=== PATIENT | female | born 1960 | race Caucasian/White ===

== ENCOUNTER 2024-04-04 10:57 | Outpatient (CLI) | payer OTHER, SELFPAY ==
--- NOTE | 2024-04-04 10:45 | DI.RAD_ITS ---
Exam(s) XR KNEE LT 4V AP,LAT,PARVIN,PAT EXAM: XR KNEE LT 4V AP,LAT,PARVIN,PAT CLINICAL HISTORY: L knee pain. TECHNIQUE: 2D digital imaging was performed. COMPARISON: No exams were available for comparison FINDINGS: Four views. No evidence of acute fracture. Joint effusion is noted. There are advanced degenerative changes in the medial compartment with advanced joint space narrowing and what appears to be a possible osteocho ndral defect at the articular surface of the medial femoral condyle. There is no joint space narrowi ng in the lateral compartment of the knee. Minimal degenerative changes in the patellofemoral compar tment. IMPRESSION: Significant degenerative narrowing of the medial compartment. Suspicion for osteochondral defect at the articular surface of the medial femoral condyle. DATA REPOSITORY: RADIATION DOSE DELIVERED:
== END 2024-04-04 10:58 | disposition home or self-care (01) ==
LOC: DIORS 10:58
PROVIDERS: PCP Internal Medicine; Referring Provider Internal Medicine; Visit Provider Physician Assistant
DX: M25.569 Pain in unspecified knee (principal)
CPT/HCPCS: 73564

== ENCOUNTER 2024-04-29 01:25 | Outpatient (CLI) | payer OTHER, SELFPAY ==
[2024-04-29 10:30] LABS: HCT 38.7 % (36.0-46.0); MCH 34.2 pg (27.0-33.0); MCHC 33.6 % (32.0-36.0); MCV 102 fL (80-95); MPV 9.6 fL (8.0-11.0); Platelet Count 222 10^3/uL (130-400); RDW-SD 48.8 fL; WBC 6.43 10^3/uL (4.4-10.8)
[2024-04-29 12:54] LABS: Anion Gap 9.1 mmol/L (3-11); BUN 12 mg/dL (7-18); CO2 27.9 mmol/L (21.0-32.0); CREATININE 0.7 mg/dL (0.55-1.02); Calcium 9.2 mg/dL (8.5-10.1); Chloride 105 mmol/L (98-107); Estimated GFR 97.72 (mL/min/1.73m2); Glucose 111 mg/dL (74-106); Potassium 4.5 mmol/L (3.5-5.1); Sodium 142 mmol/L (136-145)
== END 2024-04-29 01:26 | disposition home or self-care (01) ==
LOC: LBO 01:26
PROVIDERS: PCP Internal Medicine; Visit Provider Student in an Organized Health Care Education/Training Program
DX: M17.12 Unilateral primary osteoarthritis, left knee (principal); Z01.818 Encounter for other preprocedural examination
CPT/HCPCS: 36415; 80048; 85027

== ENCOUNTER 2024-04-29 09:30 | Outpatient (CLI) | payer OTHER, SELFPAY ==
--- NOTE | 2024-04-29 08:45 | DI.RAD_ITS ---
Exam(s) XR STANDING ALIGNMENT EXAM: XR STANDING ALIGNMENT CLINICAL HISTORY: TKR Planning. TECHNIQUE: 2D digital imaging was performed. Four images were obtained. COMPARISON: CR XR KNEE LT 4V AP,LAT,PARVIN,PAT from 04/04/2024 FINDINGS: BONES: The hips are well maintained. The right hip is well maintained with minimal spurring seen lat erally. There is again seen marked narrowing in the medial left femoral tibial joint with bone on jeffrey ne. There is also flattening of the articular surface of the femoral condyle. The ankles are well m aintained.There is no significant leg length discrepancy. SOFT TISSUE: Normal. IMPRESSION: State degenerative changes and possible post traumatic changes involving the left knee as described a juan diego. DATA REPOSITORY: RADIATION DOSE DELIVERED:
== END 2024-04-29 09:31 | disposition home or self-care (01) ==
LOC: DIORS 09:30
PROVIDERS: PCP Internal Medicine; Referring Provider Internal Medicine; Visit Provider Physician Assistant
DX: M17.12 Unilateral primary osteoarthritis, left knee (principal)
CPT/HCPCS: 77073

== ENCOUNTER 2024-05-11 06:56 | Day surgery (SDC) | payer OTHER, SELFPAY ==
[2024-05-11] VITALS (22 sets, daily range): BP systolic 101–146; BP diastolic 65–96; PULSE 75–93; RESP 13–23; TEMP 36.5–37; O2SAT 93–99; BMI 44.4
--- NOTE | 2024-05-11 06:15 | W.ANESPRE ---
General Info Date of Service Date Performed: 05/11/24 Height: 5 ft 1 in Weight: 106.594 kg Body Mass Index (BMI): 44.4 Surgical Procedure: Operation Date: 05/11/24 09:25 Proposed Procedure Side Surgeon p Knee Total Arthroplasty w/OrthAlign, Cementless CR Left Jose Alfredo Barajas MD Meds Allergies and Home Medications Allergies Allergy/AdvReac Type Severity Reaction Status Date / Time pollen extracts Allergy Unknown Other (See Verified 05/11/24 07:08 Comment) celecoxib (From Celebrex) AdvReac dizziness, Verified 05/11/24 07:15 light-headed meloxicam AdvReac GI upset Verified 05/11/24 07:15 omeprazole AdvReac Headache Verified 05/11/24 07:15 Home Medication ?Medication ?Instructions ?Recorded bupropion HCl 300 mg 24 hr tablet, 300 mg PO QAM 03/15/24 extended release duloxetine 30 mg capsule,delayed 30 mg PO DAILY 03/15/24 release levothyroxine 75 mcg capsule 75 mcg PO DAILY 03/15/24 lorazepam 0.5 mg tablet 0.5 mg PO BID PRN 03/15/24 multivitamin 1 tab PO DAILY 03/15/24 calcium carbonate (Calcium 600) 600 mg PO DAILY 04/04/24 milk thistle 150 mg capsule 150 mg PO BID 04/04/24 omega-3 fatty acids-fish oil 300 1 cap PO DAILY 04/04/24 mg-500 mg capsule (Fish Oil) psyllium husk 0.4 gram capsule 0.4 g PO DAILY 04/04/24 (Daily Fiber) acetaminophen 500 mg tablet 1,000 mg (2 x 500 mg) PO TID #90 05/11/24 tabs aspirin 81 mg tablet,delayed 81 mg PO BID #60 tabs 05/11/24 release dexamethasone 4 mg tablet 4 mg PO DAILY #2 tabs 05/11/24 gabapentin 300 mg capsule 300 mg PO QHS #14 caps 05/11/24 naproxen 500 mg tablet,delayed 500 mg PO BID #60 tabs 05/11/24 release oxycodone 5 mg tablet 5 mg PO Q4H PRN pain #20 tabs 05/11/24 Current Visit Medications: Current Medications Generic Name Dose Route Start Last Admin Trade Name Freq PRN Reason Stop Dose Admin Acetaminophen 1,000 mg 05/11/24 06:00 Acetaminophen 500 Mg Tab PO 05/11/24 23:59 PREOP TERRI Celecoxib 400 mg 05/11/24 06:00 Celecoxib 200 Mg Cap PO 05/11/24 23:59 PREOP TERRI Gabapentin 300 mg 05/11/24 06:00 Gabapentin 300 Mg Cap PO 05/11/24 23:59 PREOP TERRI Ringer's Solution 1,000 mls @ 80 mls/hr 05/11/24 06:00 IV 05/11/24 23:59 INFUSION TERRI Cefazolin Sodium/Dextrose 2 gm in 50 mls @ 100 mls/hr 05/11/24 06:00 Ancef Duplex IVPB 05/11/24 23:59 PREOP TERRI Tranexamic Acid/Sodium Chloride 1,000 mg in 100 mls @ 600 mls/hr 05/11/24 06:00 IVPB 05/11/24 23:59 PREOP TERRI IV Miscellaneous Supplies 1 each 05/11/24 06:00 Iv Access IV 05/11/24 23:59 DIRECTED TERRI Sodium Chloride 0 ml 05/11/24 06:00 Normal Saline Flush 10 Ml Syr IV 05/11/24 23:59 PRN PRN Sodium Chloride 0 ml 05/11/24 06:00 Normal Saline 10 Ml Vial IJ 05/11/24 23:59 DIRECTED PRN Sterile Water 0 ml 05/11/24 06:00 Water,Injection,Sterile 10 Ml Vial IJ 05/11/24 23:59 DIRECTED PRN PFSH Active Problems Active Problems: Problem Status Onset Code Osteoarthritis of left knee Acute M17.12 Neoplasm of skin of face Acute D49.2 Nicotine dependence Acute F17.200 Medical History Medical History Morbid obesity Meralgia paresthetica Hypothyroidism Per pt. states it has been a few months since it was drawn at @ [facility] Hyperlipidemia Hemorrhoids GERD (gastroesophageal reflux disease) Fatty liver Depressive disorder Chronic pain of left knee Anxiety Allergic rhinitis Surgical History Surgical History History of orthopedic surgery reconstruction of radial head (DOS 03/11/19) History of partial hysterectomy History of cholecystectomy Tobacco Smoking/Tobacco Use Status: Former Tobacco Use Alcohol Alcohol Intake: current Alcohol intake frequency: a few times a week Substance Use Substance use: Never Substance use type: does not use Vital Signs and Lab Results Lab Results Blood Type / Crossmatch: No Data to Display Complete Blood Count: White Blood Count 6.43 10^3/uL (4.4-10.8) 04/29/24 10:05 Red Blood Count 3.80 10^6/uL (3.93-5.22) L 04/29/24 10:05 Hemoglobin 13.0 g/dL (11.2-15.7) 04/29/24 10:05 Hematocrit 38.7 % (36.0-46.0) 04/29/24 10:05 Platelet Count 222 10^3/uL (130-400) 04/29/24 10:05 Complete Metabolic Panel: Sodium 142 mmol/L (136-145) 04/29/24 10:05 Potassium 4.5 mmol/L (3.5-5.1) 04/29/24 10:05 Chloride 105 mmol/L (98-107) 04/29/24 10:05 Carbon Dioxide 27.9 mmol/L (21.0-32.0) 04/29/24 10:05 BUN 12 mg/dL (7-18) 04/29/24 10:05 Creatinine 0.7 mg/dL (0.55-1.02) 04/29/24 10:05 Est GFR (CKD-EPI 2020) 97.72 (mL/min/1.73m2) 04/29/24 10:05 Calcium 9.2 mg/dL (8.5-10.1) 04/29/24 10:05 Glucose 111 mg/dL (74-106) H 04/29/24 10:05 Liver Function Panel: No Data to Display Coagulation Panel: No Data to Display Cardiac Panel: No Data to Display Arterial Blood Gas: No Data to Display Venous Blood Gas: No Data to Display Pancreas Panel: No Data to Display Thyroid Panel: No Data to Display Infectious Disease: No Data to Display Blood Cultures: No Data to Display Toxicology Panel: No Data to Display Anesthesia Assessment and Plan Anesthesia History Personal History: No History of Anesthesia Complications Family History: No Family History of Anesthesia Complications Exercise Tolerance Exercise Tolerance: Metabolic Equivalents>4 Cardiac & Pulmonary Exam Cardiac Exam: Normal S1/S2 Heart Sounds Pulmonary Exam: Clear Bilateral Breath Sounds Implantable Cardiac Device Does patient have a Pacemaker or an ICD?: No Airway Exam Known Difficult Airway: No Mallampati Class: 3 Mouth Opening: Normal (> 3cm) Thyromental Distance: Greater than 3 cm Neck Range of Motion: Full ROM Neck Circumference: Normal Teeth Condition: Normal Dentition ASA Classification ASA Score: ASA 3 Emergency Case?: No NPO Status NPO Status: NPO Clears >2 hours, Solids >8 hours Anesthesia Plan Resuscitation Status: Full Code Anesthesia Technique: Spinal Anesthesia Airway Planned: Natural Airway Pain Management: Surgeon and patient request nerve block Monitors Used: Standard Monitors Preoperative Comments:: 64 yo female for TKA. Sig PMHx: GERD (denies issues), fatty liver, hypothyroid (levothyroxine), anxiety/depression (bupropion/duloxetine, lorazepam). former smoker, occ EtOH, BMI >40. Echo: LVEF 65%, no WMA. normal RvFxn. no sig valve dz. PAS 24 mmhg.
--- NOTE | 2024-05-11 07:25 | W.PM.DSUDISC ---
Date of service: 05/11/24 Time of Service: 07:25 Discharge Plan Disposition Patient Disposition: Home Condition: Good Discharge Details Reason For Visit: L TKR Attending Provider: Jose Alfredo Barajas Primary Care Provider: Valorie Carson Home Meds and New Rx's Prescriptions: New aspirin 81 mg tablet,delayed release (DR/EC) 81 mg PO BID Qty: 60 0RF acetaminophen 500 mg tablet 1,000 mg PO TID Qty: 90 3RF dexamethasone 4 mg tablet 4 mg PO DAILY Qty: 2 0RF gabapentin 300 mg capsule 300 mg PO QHS Qty: 14 0RF oxycodone 5 mg tablet 5 mg PO Q4H MDD 6 tabs PRN (Reason: pain) Qty: 20 0RF naproxen 500 mg tablet,delayed release (DR/EC) 500 mg PO BID Qty: 60 3RF Continued Fish Oil 300-500 mg capsule 1 cap PO DAILY calcium carbonate [Calcium 600] 600 mg calcium (1,500 mg) tablet 600 mg PO DAILY psyllium husk [Daily Fiber] 0.4 gram capsule 0.4 g PO DAILY milk thistle 150 mg capsule 150 mg PO BID Rx Instructions: give with meal/snack bupropion HCl 300 mg tablet extended release 24 hr 300 mg PO QAM duloxetine 30 mg capsule,delayed release(DR/EC) 30 mg PO DAILY levothyroxine 75 mcg capsule 75 mcg PO DAILY lorazepam 0.5 mg tablet 0.5 mg PO BID PRN multivitamin Tablet 1 tab PO DAILY Discharge Instructions Additional Instructions: Total Knee Discharge Instructions Activity: The most important activity is to walk and to work on gentle motion (both flexion and extension). You should try to take short walks a few times a day. It is important that when resting you work on keeping the knee straight. Avoid putting a pillow behind the knee as this will encourage flexion. Work on range of motion exercises as provided by Physical Therapy. - Start outpatient physical therapy within 2 weeks. - You should wear the SAM hose on both legs for 2 weeks. You may remove these at night. You may also use any compression sock in place of the SAM hose. - Utilize [employer] to review exercises, see videos on exercises and obtain basic information pertaining to your surgery and your recovery. Dressing: Remove the Rafael wrap by 2 days after your surgery and put on the SAM stocking given to you from the hospital. Keep the surgical dressing (underneath the RAFAEL wrap) in place for at least one week. After the first week it may be removed and replaced with light gauze and tape or nothing. The wound and dressing may get wet after 3 days but avoid soaking the dressing or otherwise it will need to be changed. Many people prefer covering the dressing with cling wrap (saran wrap) to minimize it from getting soaked. If it gets wet, just pat dry. If it starts to peel off then it will need to be changed. Medications: - You should take Tylenol and anti-inflammatory napoxen as your primary pain control medications. If the Celebrex is too expensive or not covered, please call the office for another alternative (Advil/Ibuprofen or Naproxen/Aleve) - You have been prescribed a stronger pain medication Oxycodone for breakthrough pain, take as needed as prescribed. - You have been prescribed Gabapentin to take at night for restlessness and nerve pain. - You will be taking Aspirin 81mg twice a day for DVT prevention unless instructed otherwise. - You have also been prescribed Decadron to take to control post-operative nausea and pain. You will start this tomorrow. - If you have constipation you should take Colace or Miralax (both [id number]). It takes most people 3-4 days to have a bowel movement. Follow-up: 2 weeks If you have any acute concerns or questions, please do not hesitate to contact the office at [phone]. You may contact Dr. Barajas with any questions after hours through the hospital at [phone] or on his cell phone at [phone]. Referrals: Jose Alfredo Barajas MD [ [facility] STAFF PHYSICIAN] - Equipment/Supplies: Walker Activity:: Activity as Tolerated Shower/Bathe:: 72 hours Diet:: As Tolerated Discharge Orders Discharge Orders: Discharge Order (Routine); Ordered 05/11/24 Ordered By: Daniel Cid DS: Diagnosis Discharge Diagnosis (1) Osteoarthritis of left knee: Status: Acute
[2024-05-11] MEDS: Acetaminophen 500 MG TAB 1000 MG PO (07:56)
[2024-05-11] MEDS: Celecoxib 200 MG CAP 400 MG PO (07:56)
[2024-05-11] MEDS: Gabapentin 300 MG CAP PO (07:56)
[2024-05-11] MEDS: Lactated Ringers 1,000 ML 80 ML IV (08:00)
--- NOTE | 2024-05-11 08:11 | W.ANESNERVE ---
Nerve Block Single Injection Procedure Date and Time Date Performed: 05/11/24 Procedure Start: 08:08 Location Where Procedure Performed Procedure Location: Day Surgery Unit Reason Performed: Postoperative Analgesia Requesting Provider: Jose Alfredo Barajas Timeout Performed Timeout Performed: Yes Monitoring Used ECG, Blood Pressure and SpO2 Sterility Sterility: Hand Hygiene, Surgical Cap, Surgical Mask, Sterile Gloves and Chlorhexidine Sedation Given During Procedure Sedation Given (Indicate Dose Given): Versed IV Dose:: 2 mg Patient Mental Status Patient Mental Status: Sedate with meaningful communication Nerve Block 1st Nerve Block: Laterality: Left Block Type: Adductor Canal Ultrasound Image Saved?: Yes Needle / Catheter Used: 100mm SonoPlex II Local Anesthetic Bolus (Indicate Dose Given): Lidocaine used for local infiltration of skin, Injected in 3-5ml increments after negative blood aspiration and Bupivacaine 0.375% Dose:: 10 mL Additives (Indicate Dose Given): Normal Saline Ultrasound: Sterile probe cover and gel used Nerve Stimulator: Supplement to Ultrasound use and No twitch or parasthesia noted < 0.5 mA Paresthesia: None Procedure Tolerated: No Complications Procedure Outcome: Successful Performed By: Jeanmarie Diaz
[2024-05-11] MEDS: ceFAZolin 2 GM/50 ML BAG IVPB (09:09)
[2024-05-11] MEDS: TRANEXAMIC ACID/SOD. CHL. 1,000 MG/100 ML BAG 600 MG IVPB (09:14)
--- NOTE | 2024-05-11 11:40 | W.ANESPOSTOP ---
Postoperative Evaluation Date, Time and Location Date Performed: 05/11/24 Time Performed: 11:40 Patient Location: PACU Vital Signs Most Recent Imported Vital Signs: Most Recent Vital Signs Temp Pulse Resp BP Pulse Ox 36.6 C 78 18 101/81 96 05/11/24 11:25 05/11/24 08:03 05/11/24 08:03 05/11/24 08:03 05/11/24 08:03 Pain Score Most Recent Pain Score: Most Recent Pain Score Pain Level 0 05/11/24 11:25 Assessment Mental Status: Awake (Alert & Oriented to Patient Baseline) Airway and Respiratory Function: Patent airway with normal (patient baseline) respiratory exam Cardiovascular Function: Hemodynamically Stable Hydration Status: Adequately Hydrated Nausea & Vomiting: No Nausea or Vomiting Pain: Pt. Denies Any Pain (spinal still waning. ) Peripheral Nerve Block: Regional nerve block not resolved at time of post operative discharge
[2024-05-11] MEDS: fentaNYL 100 MCG/2 ML VIAL IVP ×2 (11:53→11:59)
[2024-05-11] MEDS: oxyCODONE 5 MG TAB PO (12:42)
--- NOTE | 2024-05-11 12:47 | W.PM.OP ---
Date of service: 05/11/24 Time of Service: 09:20 Operative Note Operative Note DATE OF PROCEDURE: 05/11/24 PRE-OP DIAGNOSIS: Left Knee Osteoarthritis POST-OP DIAGNOSIS: same Left Knee Osteonecrosis PROCEDURE: Left Total Knee Replacement with Intraoperative Navigation; Increased Difficulty Due to Habitus and Morbid Obesity SURGEON: Jose Alfredo Barajas MATERIALS SCHEDULER: Cherrie Cid ANESTHESIA TYPE: Spinal Refer to Anesthesia Record ESTIMATED BLOOD LOSS: 400 PATHOLOGY: none sent TOURNIQUET TIME: 0 COMPLICATIONS: None Patient was transported to: PACU Patient's condition: stable Implants: 1. Depuy Attune Cementless Cruciate Retaining Femoral Component, Size 5 2. Depuy Attune Cementless Fixed Bearing Tibial Component, Size 4 3. Depuy Attune 5x8 CR/FB Poly 4. Depuy Attune Patellar Component, Size 35 Indications: I have seen Tri in clinic for symptoms of LEFT knee arthritis, confirmed with radiographic findings. She had a knee arthroscopy preceding this visit for arthritis which only made her symptoms worse. She was relegated to using crutches due to significant pain. Tri has exhausted nonoperative methods and was having significant limitations in daily function and desired better function and less pain. I discussed the technical details of a knee replacement. I explained the risks of the procedure to include, but not limited to, bleeding, infection, pain, stiffness, fracture, damage to nerves and vessels, damage to muscles and tendons, loosening, need for repeat procedure, blood clot and cardiopulmonary demise. Despite these risks, Tri elected to proceed. Findings: There was significant signs of arthritis throughout the knee. Procedure Description: Tri was greeted in the preoperative holding area where the correct side was identified and marked. The consent was reviewed with the patient and signed. The history and physical was updated. All questions were answered. Preoperative mediacations were administered: Acetaminophen 1000mg, Celebrex 400mg, and Gabapentin 300mg. An adductor canal block was then administered by the anesthesia team in the PACU. Tri was taken back to the operating room. A spinal anesthestic was then administered. The patient was placed into the supine position on the operating room table. A nonsterile tourniquet was placed high onto the leg. Posts were placed for positioning during the procedure. All bony prominences were well padded. Prophylactic antibiotics in the form of Cefazolin were administered. 1g of Tranxemic Acid was given intravenously within 30 minutes of incision. The left leg was then prepped with Chloraprep and draped in a standard fashion with impervious stockinette. A second prep with Chloraprep was performed prior to application of Iodine impregnated skin protection. A timeout to confirm correct identity, side and site, procedure, allergies, anesthesia, and medical concerns was performed. With the knee in some flexion, a midline incision was made overlying the knee. Initial approach was challenging given her habitus and morbid obesity. There is significant adiposity overlying the anterior and anteromedial aspect of the knee which made it necessary to extend the incision for visualization of the deeper structures. Full thickness skin flaps were raised once the extensor mechanism was encountered. These were raised medially and laterally. Any bleeding was controlled with electrocautery. Once the extensor mechanism was fully exposed, a medial parapatellar arthrotomy was performed in a flexed position. All bleeding from the arthrotomy and the geniculate arteries was coagulated. A medial subperiosteal peel was performed with electrocautery to the midcoronal plane. Due to the significant varus deformity the entire medial tibial plateau was exposed. The fat pad was removed while keeping the patellar tendon protected. The anterior distal femur synovium was removed for later visualization. The ACL and PCL were resected and the anterior horn of the lateral meniscus was transected. The knee was then flexed with the patella everted. Large osteophytes from the tibia were removed. Large osteophytes from the femur were removed. There was notable erosion of cartilage from the trochlea. Additionally the entire medial femoral cartilage peeled off with underlying areas of bone necrosis about the medial femur, involving about 4 to 6 mm depth of bone over the weightbearing portion of the medial femur. A single starting pin was then placed 1cm anterior to the PCL insertion and the notch in the direction of the femoral head. The OrthoAlign device was applied over the pin. It was oriented to be in line with the epicondylar axis and the trochlear groove. It was then pinned into place. The navigation computer was then turned on and calibrated. The distal femur cut was set at 0.5 degrees varus and 3.5 degrees flexion. The distal femur cutting guide then was positioned for a 9mm cut. The distal femur was cut with an oscillating saw while protecting the soft tissues. The tibia was then addressed. The OrthoAlign device was placed over the tibial tubercle and medial tibia and secured into position. Unfortunately, the habitus of the anterior knee prevented the navigation device from being utilized as well as unable to mobilize the targeting arm into position due to the habitus of the leg and the anterior knee. Attempts were made to manipulate this in the position but it was not able to be placed appropriately and therefore did not have valid accuracy. Thus, I moved to a conventional device for the tibia. This was placed into position and alignment was assumed by the position of the foot, tibial crest by palpation and the tibial tubercle. This was placed into some slight varus matching her preoperative x-rays. A stylus was placed over the medial side for a 4 mm cut which corresponded to about 9 mm laterally. This was pinned into position. The soft tissue were protected and the proximal tibia was cut. The cut was inspected for any ridges or bony prominences which were removed. The knee was then brought into extension where a spacer block was utilized to confirm appropriate balance in an extension gap of about 8 mm. The Orthoalign gap balancing device was then placed in extension. Unfortunately, this also was unable to be utilized due to her habitus. I was unable to insert the paddles deep enough into the knee without impingement on the handle of the device. Therefore, attention was then turned to the femur. The femur was then sized as a size 5. The 4-in-1 cutting guide was the placed, posterior sized 1 notch, approximately 1.5 mm. An ayaan wing was used to confirm appropriate position of the anterior cut to avoid notching. This cutting guide was ensured to be flush on the cut surface and then pinned into place with headed pins. While protecting the soft tissues, quad tendon, and collateral ligaments, the anterior and posterior cuts were performed with a saw. The central two pins were removed and the posterior and anterior chamfers were cut next. The notch-cutting guide was placed. This was pinned to lateralize the femoral component as much as possible while keeping it flush on the cut surface. This was then pinned into position. A saw was used to make the notch cut. A rasp smoothed the cut surfaces. The medial and lateral menisci were removed. A trial femoral component was then inserted, impacted down to the cut surfaces, and the lug holes were drilled. A provisional trial tibial component was placed and the knee was brought through range of motion. There was noted to be excellent extension and flexion. There was no significant instability. The patella was tracking without thumbs. A size 8mm polyethylene component provided the best range of motion and stability with less than 2mm gapping with medial and lateral stress and full extension without significant hyperextension. The tibial cut surface was fully exposed. The tibia was then sized as a 4. The tibia had been previously marked during trialing to correspond to the center of the tibial component to help with rotation. The trial was aligned to this cherrie, approximately rotated to the medial 1/3rd of the tibial tubercle. The trial was pinned into place. The tibia was prepared with a reamer and a keel punch and lug holes. The knee was then brought into extension and the patella was measured as 25mm. Using the patellar clamp and cut guide, this was resected to a flat surface with at least 13mm of thickness remaining. The size 35 patella fit the best. This was oriented and then clamped into position. The lugs were drilled. The trial components were removed. The final components were opened on the back table. The periosteal and capsular tissues, especially posteriorly, around the knee were then systematically injected with a periarticular cocktail consisting of 246mg of Ropivacaine, 0.5mg of Epinephrine, 0.08mg of Clonidine, and 30mg of Ketorolac, diluted to 100cc. On the back table, with the implants opened, the cement was mixed. One batch of high viscosity cement was prepared with vacuum assistance. After the cement was ready a small amount was placed on the cut surface of the patella and the patellar button was clamped into position and held. While the cement was hardening, the cementless knee components were placed. Starting with the tibial component, the tibia was subluxed anteriorly and the lug holes of the component were lined up. The tibia was then impacted with an impactor and mallet until the tibial component was in contact with the tibia. Then, the femoral component was inserted. The lug holes were aligned and the component was impacted into position. The final polyethylene component was inserted. The knee was irrigated with Surgiphor Betadine solution. This was allowed to sit in the knee for 3 minutes and then it was thoroughly irrigated out with saline. After the cement had finally cured, approximately 15min, the clamp was removed from the patella and the knee was taken through range of motion. The patella was tracking with a no-thumbs technique. The capsule was then reapproximated with a No. 1 Vicryl at multiple locations. The capsule was finally closed with a No. 2 Stratafix, barbed suture. Deep tissues were then reapproximated with 0 Vicryl and 2-0 Vicryl. The skin was closed with a running 3-0 Monocryl in a subcuticular fashion. This was reinforced with skin glue. A Mepilex silver dressing was applied along with a [id number] LINDA wrap. A CryoCuff was applied. Tri was transferred to the hospital bed without difficulty an suffering no apparent complication. Tri has a good prognosis. Physical therapy will start today and without restrictions, weight-bearing as tolerated. Aspirin 81mg BID will be used for DVT prophylaxis.
--- NOTE | 2024-05-11 14:44 | IN_ITS ---
PT Notes Visit Reasons: L TKR Physical Therapy Day Surgery Initial Evaluation Date: 05/11/24 Referring Doctor: RAMEZ Garces PT Orders: s/p left TKA Precautions: standard Patient Profile/Admitting Diagnosis: PT orders received for evaluation following left TKA post-op day #0. Social History/Home Situation: Patient resides with her in a mobile home. She has 4 STEVE with bilat rails. 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 Equipment Owned/DME: [facility] Subjective: Tri states that her knee is less painful. She has walked to the bathroom with nursing, which went well. Objective: General Observation: Sitting up in chair, dressed, IV in RUE. Rafael wrap to LLE. Mental Status: A&Ox3. ROM: Right Upper Extremity: WFL Left Upper Extremity: WFL Right Lower Extremity: WFL Left Lower Extremity: Actively demonstrates left knee motion 0-90*. Strength: Right Upper Extremity: Shoulder flexion 3/5 or greater. Triceps 4/5. Left Upper Extremity: Shoulder flexion 3/5 or greater. Triceps 4/5. Right Lower Extremity: Quads 5/5. Ankle DF 5/5. Left Lower Extremity: Able to perform SLR without extension lag. Performs active heel slide within limited range. Able to actively DF ankle. Bed Mobility/Transfers: Supine to sit : performed with nursing Sit to stand : supervision, cues for hand placement Stand to sit : supervision, cues for hand placement Gait: Ambulates 100'x2 with FWW, CGA. Cues for TKE during stance. Stairs: managed therapeutic stairs 6x2, 4x3 with bilat rails, step to pattern, SBA. Balance: Static Sitting: normal Dynamic Sitting: good Static Standing: good Dynamic Standing: fair Informed Consent/Education: Patient instructed in purpose of PT consult. Packet containing TKA exercise protocol has been given to patient. Education and training on initial set of exercises that can be done at home have been completed with patient. Treatment: Initial Evaluation (05850) Included instruction in HEP consisting of ankle pumps, quad sets, glute sets, heel slides, SLR, passive knee extension. Instruction in equipment management and stair management Encourage short, frequent walks in upcoming days Assessment: Patient presents with clinical signs and symptoms consistent with current/admitting diagnoses that have resulted to mobility limitations, gait in stability, generalized weakness, and impairment of motor control as demonstrated by the following impairment level findings: 1. Decreased strength to left knee major muscle groups 2. Impaired standing balance 3. Limitation of joint range of motion in left knee Impairments are contributing to the following functional limitations: 1. Inability to safely ambulate without assistive device 2. Increase completion time for mobility ADL performance 3. Increased fall risk Patient is assessed as low complexity based on the following: History: 64-year-old female with impairment level findings, functional limitations, and past medical history as indicated above Examination: Demonstrable impairment in strength, balance, and mobility level with underlying impairments and functional limitations as documented above Presentation: stable Decision Making: low complexity Goals: N/A. PT evaluation only for functional mobility training using recommended AD and for HEP instruction. Plan of Care/Treatment Plan: N/A. PT evaluation only for functional mobility training using recommended AD and for HEP instruction. DISCHARGE RECOMMENDATIONS: Home with outpatient PT TREATMENT CODE/TIME: [id number] ([id number]) Thank you for the opportunity to participate in the care of this patient. Celia Portillo, PT, DPT [facility] Please sign an return this page within 30 days if you agree with the above POC. Thank you! Physician Signature Date [facility] All Active Problems (Updated 05/11/24 @ 13:48 by Sravanthi Edwards RN) History of total left knee replacement (Acute 05/11/24) Neoplasm of skin of face (Acute) Nicotine dependence (Acute) Medical History (Updated 05/11/24 @ 13:48 by Sravanthi Edwards RN) Morbid obesity Meralgia paresthetica Hypothyroidism Per pt. states it has been a few months since it was drawn at @ [facility] Hyperlipidemia Hemorrhoids GERD (gastroesophageal reflux disease) Fatty liver Depressive disorder Chronic pain of left knee Anxiety Allergic rhinitis Surgical History (Updated 05/11/24 @ 13:48 by Sravanthi Edwards RN) History of orthopedic surgery reconstruction of radial head (DOS 03/11/19) History of partial hysterectomy History of cholecystectomy
== END 2024-05-11 14:45 | disposition home or self-care (01) ==
PROVIDERS: PCP Internal Medicine; Visit Provider Student in an Organized Health Care Education/Training Program
PROC: (CPT 27447; principal; 2024-05-11 09:15)
DX: M17.12 Unilateral primary osteoarthritis, left knee (principal); Z68.41 Body mass index [BMI] 40.0-44.9, adult; F17.210 Nicotine dependence, cigarettes, uncomplicated; K76.0 Fatty (change of) liver, not elsewhere classified; E03.9 Hypothyroidism, unspecified; E78.5 Hyperlipidemia, unspecified; E66.01 Morbid (severe) obesity due to excess calories
CPT/HCPCS: 27447; 20985; 76942; 97161; C1776; J0665; J0690; J1100; J2250; J2401; J2405; J2704; J3010

== ENCOUNTER 2024-05-26 13:37 | Outpatient (CLI) | payer OTHER, SELFPAY ==
--- NOTE | 2024-05-26 10:40 | DI.RAD_ITS ---
Exam(s) XR KNEE LT 1V XR STANDING ALIGNMENT EXAM: XR STANDING ALIGNMENT and XR knee LT 1 V CLINICAL HISTORY: FIRST POST OP LEFT TKR. TECHNIQUE: 2D digital imaging was performed. Five images were obtained. COMPARISON: CR XR KNEE LT 4V AP,LAT,PARVIN,PAT from 04/04/2024 CR XR STANDING ALIGNMENT from 04/29/2024 FINDINGS: BONES: The hips are well maintained. The patient has a left total knee replacement. The orthopedic hardware appears in good position. No suspicious lucencies are seen around the orthopedic hardware. The right knee is well maintained. The ankles are well maintained.The right lower extremity is 11 m m longer than the left lower extremity. SOFT TISSUE: There is soft tissue swelling of the left lower extremity. IMPRESSION: Left total knee replacement. In good position. DATA REPOSITORY: RADIATION DOSE DELIVERED:
== END 2024-05-26 13:38 | disposition home or self-care (01) ==
LOC: DIORS 13:37
PROVIDERS: PCP Internal Medicine; Referring Provider Internal Medicine; Visit Provider Physician Assistant
DX: Z96.652 Presence of left artificial knee joint (principal); Z47.1 Aftercare following joint replacement surgery
CPT/HCPCS: 73560; 77073

== ENCOUNTER 2025-03-27 15:14 | Outpatient (CLI) | payer OTHER, SELFPAY ==
--- NOTE | 2025-03-27 15:25 | DI.RAD_ITS ---
Exam(s) XR KNEE LT 2V AP,LAT EXAM: XR KNEE LT 2V AP,LAT INDICATION: ANNUAL F/U L TKA. COMPARISON: CR XR KNEE LT 1V from 05/26/2024 TECHNIQUE: 2D digital imaging was performed. Two views. FINDINGS: Stable alignment total knee prosthesis. No abnormal bony lucencies. No visible joint effusion. Impression: Stable appearance of knee prosthesis. DATA REPOSITORY: RADIATION DOSE DELIVERED:
== END 2025-03-27 15:15 | disposition home or self-care (01) ==
LOC: DIORS 15:15
PROVIDERS: PCP Internal Medicine; Referring Provider Internal Medicine; Visit Provider Student in an Organized Health Care Education/Training Program
DX: Z96.652 Presence of left artificial knee joint (principal)
CPT/HCPCS: 73560